=== PATIENT | female | born 1945 | race Caucasian/White ===

== ENCOUNTER 2018-01-05 06:16 | Day surgery (SDC) | payer MEDICARE ==
[2017-12-31 10:26] LABS: BASOPHILS % (AUTO) 1.5 % (0.0-5.0); EOSINOPHILS % (AUTO) 3.6 % (0.0-8.0); MEAN CORPUSCULAR HEMOGLOBIN 30.4 pg (27.0-33.0); MEAN CORPUSCULAR VOLUME 89.3 fL (79-99); NEUTROPHILS % (AUTO) 62.9 % (40.0-77.0); PLATELET COUNT (AUTO) 266 K/uL (130-400); RED BLOOD CELL COUNT(AUTO) 3.92 MIL/uL (4.00-5.50); RED CELL DISTRIBUTION WIDTH 13.6 % (11.0-15.5); WHITE BLOOD COUNT (AUTO) 6.4 K/uL (4.8-10.8)
[2017-12-31 10:30] VITALS: BP 146/68
[2017-12-31 10:35] LABS: CREATININE 1.1 mg/dL (0.5-1.5); POTASSIUM 4.3 mmol/L (3.5-5.1)
[2018-01-05] VITALS (17 sets, daily range): BP systolic 104–149; BP diastolic 35–73
[~2018-01-05] VITALS: Ht 167.6 cm; Wt 67.9 kg
[2018-01-05] MEDS: CEFOXITIN SODIUM 2 GM VIAL IVP SCH ×2 (06:00→08:45)
[~2018-01-05 06:16] MED LIST: CA/D1TAB3 PO; CARV25TA PO; CLOP75TA14 PO; METF-444 PO; OLME20TA10 PO; ROSU20TA PO
[2018-01-05] MEDS ORDERED: SODIUM CHLORIDE 0.9% 1000ML 1,000 ML IV ONE (06:46)
[2018-01-05] MEDS ORDERED: LIDOCAINE HCL-MPF 0.5% 50ML VIAL IJ ONE (07:15)
[2018-01-05] MEDS ORDERED: NEOMY SULF/POLYMYXIN B SULFATE 1 ML AMPUL IR ONE (07:16)
[2018-01-05] MEDS ORDERED: BUPIVACAINE/EPI/PF 0.5% 30ML VIAL IJ ONE (07:16)
[2018-01-05] MEDS ORDERED: DEXAMETHASONE SOD PHOSPHATE 10MG/ML 1ML VIAL ONE (07:23)
[2018-01-05] MEDS ORDERED: LIDOCAINE PF 2% 5ML ABBOJECT ONE (07:23)
[2018-01-05] MEDS ORDERED: SUCCINYLCHOLINE 200MG/10ML SYR ONE (07:23)
[2018-01-05] MEDS ORDERED: PROPOFOL 10 MG/ML 20ML VIAL IV ONE (07:24)
[2018-01-05] MEDS ORDERED: MIDAZOLAM HCL 1 MG/ML 2ML VIAL ONE (07:24)
[2018-01-05] MEDS ORDERED: GLYCOPYRROLATE 1 MG/5 ML SYRINGE ONE (07:24)
[2018-01-05] MEDS ORDERED: NEOSTIGMINE 5MG/5ML SYR IV ONE (07:24)
[2018-01-05] MEDS ORDERED: ROCURONIUM 10MG/1ML SYR 10 MG/ML ML ONE (07:25)
[2018-01-05] MEDS ORDERED: FENTANYL CITRATE PF 50 MCG/1 ML 2ML VIAL ONE (07:25)
== END 2018-01-05 11:40 | disposition home or self-care (01) ==
LOC: DAH 06:16
PROVIDERS: ATTEND Surgery
DX: K80.10 Calculus of gallbladder with chronic cholecystitis without obstruction (principal); Z88.0 Allergy status to penicillin; E11.9 Type 2 diabetes mellitus without complications; I10 Essential (primary) hypertension; Z79.899 Other long term (current) drug therapy; Z79.84 Long term (current) use of oral hypoglycemic drugs; Z95.5 Presence of coronary angioplasty implant and graft
CPT/HCPCS: 36415; 47562; 80048; 82948 ×2; 85025; 88304; 93005; A4218; A4450; A4649 ×3; C1769 ×3; J0330; J0694; J1100; J2001; J2250; J2704; J2710; J3010; J3490 ×4; J7030 ×2

== ENCOUNTER → 2020-06-06 | Outpatient (CLI) | payer MEDICARE ==
[~2020-06-06] MED LIST changes: -ROSU20TA PO; +ROSU20TA23 PO
== END | disposition home or self-care (01) ==
LOC: RAH 13:38
PROVIDERS: ATTEND Family Medicine
DX: S83.241A Other tear of medial meniscus, current injury, right knee, initial encounter (principal); M71.21 Synovial cyst of popliteal space [Baker], right knee; X58.XXXA Exposure to other specified factors, initial encounter; Y93.89 Activity, other specified; Y92.89 Other specified places as the place of occurrence of the external cause; Y99.8 Other external cause status
CPT/HCPCS: 73721